=== PATIENT | female | born 1950 | race Two or more races ===

== ENCOUNTER 2019-05-10 19:37 | Emergency (ER) | payer MEDICAID, OTHER ==
[~2019-05-10] VITALS: Ht 149.9 cm; Wt 90.7 kg
[~2019-05-10 19:37] MED LIST: ALL300T GT; AMLO5TAB15 PO; ASPI81CH43 PO; CHOL1TAB42 PO; GABA-339 PO; GEMF600T7 PO; GLIP5TAB12 PO; INSLANTI SC; INSLISPI SC; LOSA-69 PO; METF-372 PO; METO-159 PO; NITR50CA PO; PIOG45TA11 PO; TRAM50TA2 PO
[2019-05-10 20:08] LABS: Basophils # (auto) 0.1 uL; Basophils % (auto) 0.8 % (0.0-2.0); Eosinophils # (auto) 0 uL; Hematocrit 38.7 % (36.0-46.0); Hemoglobin 12.8 g/dL (12.2-16.2); Lymphocytes # (auto) 2.3 uL; Lymphocytes % (auto) 23.6 % (10.0-50.0); Mean Corpuscular Hemoglobin 29.4 pg (28.0-32.0); Mean Corpuscular Hgb Conc. 33.2 g/dL (32.0-36.0); Mean Corpuscular Volume 88.5 fL (80.0-100.0); Monocytes # (auto) 0.6 uL; Monocytes % (auto) 5.8 % (0.0-12.0); Neutrophils # (auto) 6.9 uL; Neutrophils % (auto) 69.8 % (37.0-80.0); Platelet Count (auto) 283 10^3/uL (140-450); Red Blood Cells 4.37 10^6/uL (4.0-5.20); Red Cell Distribution Width 15.1 % (11.8-14.3); White Blood Cell 9.8 10^3/uL (4.4-10.8)
[2019-05-10 20:38] LABS: Alanine Aminotransferase 6 U/L (13-56); Albumin 3.1 g/dL (3.4-5.0); Anion Gap 9 (5-15); Aspartate Aminotransferase 9 U/L (15-37); BUN/Creatinine Ratio 24.6; Blood Urea Nitrogen 28 mg/dL (7-18); Calcium 8.6 mg/dL (8.5-10.1); Carbon Dioxide 24 mmol/L (21-32); Chloride 103 mmol/L (98-107); GFR African American 60 mL/min; GFR Non-African American 50 mL/min; Glucose 120 mg/dL (74-106); Potassium 4.6 mmol/L (3.5-5.1); Sodium 136 mmol/L (136-145)
[2019-05-10 20:43] LABS: Alkaline Phosphatase 63 U/L (45-117); Bilirubin, Total 0.3 mg/dL (0.2-1.0); Total Protein 7.3 g/dL (6.4-8.2)
[2019-05-10 21:44] VITALS: BP 105/68
== END 2019-05-10 23:20 | disposition home or self-care (01) ==
LOC: EDUNIT# 19:37 → ER 19:37
DX: S00.03XA Contusion of scalp, initial encounter (principal); J32.0 Chronic maxillary sinusitis; R42 Dizziness and giddiness; E11.9 Type 2 diabetes mellitus without complications; I10 Essential (primary) hypertension; W18.39XA Other fall on same level, initial encounter; Y93.89 Activity, other specified; Y92.89 Other specified places as the place of occurrence of the external cause; Y99.8 Other external cause status
CPT/HCPCS: 36415; 70450; 80053; 83880; 84484; 85025; 93005

== ENCOUNTER 2019-06-01 09:36 | Emergency (ER) | payer MEDICAID ==
[~2019-06-01] VITALS: Ht 152.4 cm; Wt 81.6 kg
[2019-06-01 10:26] LABS: Basophils # (auto) 0.1 uL; Basophils % (auto) 0.7 % (0.0-2.0); Eosinophils # (auto) 0 uL; Eosinophils % (auto) 0.1 % (0.0-7.0); Hematocrit 43.3 % (36.0-46.0); Hemoglobin 14.2 g/dL (12.2-16.2); Lymphocytes % (auto) 17.2 % (10.0-50.0); Mean Corpuscular Hgb Conc. 32.8 g/dL (32.0-36.0); Mean Corpuscular Volume 88.6 fL (80.0-100.0); Monocytes # (auto) 0.6 uL; Platelet Count (auto) 326 10^3/uL (140-450); Red Blood Cells 4.89 10^6/uL (4.0-5.20); Red Cell Distribution Width 16.1 % (11.8-14.3); White Blood Cell 11.6 10^3/uL (4.4-10.8)
[2019-06-01 10:43] LABS: Albumin 3.8 g/dL (3.4-5.0); Calcium 9.2 mg/dL (8.5-10.1); Potassium 4.1 mmol/L (3.5-5.1)
[2019-06-01 10:48] LABS: BUN/Creatinine Ratio 24.8; Bilirubin, Total 0.4 mg/dL (0.2-1.0); Total Protein 7.7 g/dL (6.4-8.2)
[2019-06-01] MEDS ORDERED: MECLIZINE HCL 25 MG TAB PO ONE (12:00)
[2019-06-01 13:32] VITALS: BP 107/74
== END 2019-06-01 13:34 | disposition home or self-care (01) ==
LOC: ER 09:36
DX: R42 Dizziness and giddiness (principal); F41.8 Other specified anxiety disorders; R11.2 Nausea with vomiting, unspecified; R19.7 Diarrhea, unspecified; R10.13 Epigastric pain; E11.9 Type 2 diabetes mellitus without complications; I11.0 Hypertensive heart disease with heart failure; I50.9 Heart failure, unspecified; Z90.49 Acquired absence of other specified parts of digestive tract; Z90.710 Acquired absence of both cervix and uterus; Z79.82 Long term (current) use of aspirin; Z79.4 Long term (current) use of insulin; Z79.899 Other long term (current) drug therapy
CPT/HCPCS: 36415; 70450; 80053; 85025; 99284; J8597

== ENCOUNTER 2023-12-29 20:08 | Emergency (ER) | payer MEDICAID ==
[~2023-12-29] VITALS: Ht 152.4 cm; Wt 77.0 kg
[~2023-12-29 20:08] MED LIST changes: +AMLO1TAB22 PO; -AMLO5TAB15 PO; +GEMF-66 PO; -GEMF600T7 PO; -GLIP5TAB12 PO; +GLIP5TAB21 PO; +LOSA-534 PO; -LOSA-69 PO; -NITR50CA PO; +NITR50CA52 PO
[2023-12-29 20:14] VITALS: BP 153/99; PULSE 105; RESP 16; TEMP 98.3; O2SAT 97
[2023-12-29] MEDS: HYDROcodone-ACET 5/325MG TAB PO ONE (21:22)
[2023-12-29] MEDS: KETOROLAC TROMETH 60MG/2ML VIAL IM ONE (21:23)
[2023-12-29] MEDS ORDERED: ACE3T PO (22:07)
[2023-12-29] MEDS ORDERED: IBUP1TAB5 PO (22:07)
== END 2023-12-29 22:40 | disposition home or self-care (01) ==
LOC: ER 20:08
DX: M47.812 Spondylosis without myelopathy or radiculopathy, cervical region (principal); I10 Essential (primary) hypertension; E11.9 Type 2 diabetes mellitus without complications; I20.9 Angina pectoris, unspecified; E66.01 Morbid (severe) obesity due to excess calories; Z68.33 Body mass index [BMI] 33.0-33.9, adult; Z98.890 Other specified postprocedural states; Z79.899 Other long term (current) drug therapy
CPT/HCPCS: 72040; 96372; 99283; J1885